=== PATIENT | female | born 1955 | race Caucasian/White ===

== ENCOUNTER 2021-10-30 06:00 | Outpatient (RCR) | payer BC, SELFPAY | END 2021-11-12 23:59 | disposition home or self-care (01) | LOC: GPT 06:00 | PROVIDERS: PCP Emergency Medicine; Visit Provider Orthopaedic Surgery Adult Reconstructive Orthopaedic Surgery | DX: S52.125S Nondisplaced fracture of head of left radius, sequela (principal); X58.XXXS Exposure to other specified factors, sequela; Z96.621 Presence of right artificial elbow joint | CPT/HCPCS: 97032; 97110; 97112; 97140; 97162; 97535 ==

== ENCOUNTER 2021-11-13 06:00 | Outpatient (RCR) | payer BC, SELFPAY | END 2021-12-12 23:59 | disposition home or self-care (01) | LOC: GPT 06:00 | PROVIDERS: PCP Emergency Medicine; Visit Provider Orthopaedic Surgery Adult Reconstructive Orthopaedic Surgery | DX: S52.125S Nondisplaced fracture of head of left radius, sequela (principal); X58.XXXS Exposure to other specified factors, sequela; Z96.621 Presence of right artificial elbow joint | CPT/HCPCS: 97110; 97140; 97164 ==

== ENCOUNTER 2021-12-13 06:00 | Outpatient (RCR) | payer BC, SELFPAY | END 2022-01-12 23:59 | disposition home or self-care (01) | LOC: GPT 06:00 | PROVIDERS: PCP Emergency Medicine; Visit Provider Orthopaedic Surgery Adult Reconstructive Orthopaedic Surgery | DX: M25.511 Pain in right shoulder (principal) | CPT/HCPCS: 97110; 97112; 97140; 97164 ==

== ENCOUNTER 2022-01-13 06:00 | Outpatient (RCR) | payer BC, SELFPAY | END 2022-02-11 23:59 | disposition home or self-care (01) | LOC: GPT 06:00 | PROVIDERS: PCP Emergency Medicine; Visit Provider Orthopaedic Surgery Adult Reconstructive Orthopaedic Surgery | DX: M25.511 Pain in right shoulder (principal) | CPT/HCPCS: 97110; 97112; 97140; 97535 ==

== ENCOUNTER 2022-02-12 06:00 | Outpatient (RCR) | payer BC, SELFPAY | END 2022-03-14 23:59 | disposition home or self-care (01) | LOC: GPT 06:00 | PROVIDERS: PCP Emergency Medicine; Visit Provider Orthopaedic Surgery Adult Reconstructive Orthopaedic Surgery | DX: M25.511 Pain in right shoulder (principal) | CPT/HCPCS: 97110; 97112; 97140; 97530; 97535 ==

== ENCOUNTER 2022-03-15 06:00 | Outpatient (RCR) | payer MEDICARE, BC, SELFPAY | END 2022-04-14 23:59 | disposition home or self-care (01) | LOC: GPT 06:00 | PROVIDERS: PCP Emergency Medicine; Visit Provider Orthopaedic Surgery Adult Reconstructive Orthopaedic Surgery | DX: M25.511 Pain in right shoulder (principal) | CPT/HCPCS: 20561; 97110; 97140; 97164; 97530; G0283 ==

== ENCOUNTER 2022-04-15 06:00 | Outpatient (RCR) | payer BC, SELFPAY | END 2022-05-12 11:29 | disposition home or self-care (01) | LOC: GPT 06:00 | PROVIDERS: PCP Emergency Medicine; Visit Provider Orthopaedic Surgery Adult Reconstructive Orthopaedic Surgery | DX: M25.511 Pain in right shoulder (principal) | CPT/HCPCS: 20560; 20561; 97110; 97140; G0283 ==

== ENCOUNTER 2022-05-13 06:00 | Outpatient (RCR) | payer BC, SELFPAY | END 2022-05-29 23:59 | disposition home or self-care (01) | LOC: GPT 06:00 | PROVIDERS: PCP Emergency Medicine; Visit Provider Orthopaedic Surgery Adult Reconstructive Orthopaedic Surgery | DX: M25.511 Pain in right shoulder (principal) | CPT/HCPCS: 97140; 97164 ==

== ENCOUNTER 2022-07-13 06:00 | Outpatient (RCR) | payer BC, SELFPAY | END 2022-08-12 23:59 | disposition home or self-care (01) | LOC: GPT 06:00 | PROVIDERS: Visit Provider Physician Assistant | DX: M54.50 Low back pain, unspecified (principal) | CPT/HCPCS: 97110; 97112; 97140; 97161; 97530; 97535 ==

== ENCOUNTER 2024-09-12 05:00 | Outpatient (RCR) | payer MEDICARE, SELFPAY | END 2024-10-12 23:59 | disposition home or self-care (01) | LOC: GPT 05:00 | PROVIDERS: Visit Provider Physical Medicine & Rehabilitation Pain Medicine | DX: M46.1 Sacroiliitis, not elsewhere classified (principal); M54.17 Radiculopathy, lumbosacral region; M54.59 Other low back pain | CPT/HCPCS: 20560; 97110; 97112; 97140; 97161; G0283 ==

== ENCOUNTER 2024-10-13 05:00 | Outpatient (RCR) | payer MEDICARE, SELFPAY | END 2024-11-12 23:59 | disposition home or self-care (01) | LOC: GPT 05:00 | PROVIDERS: Visit Provider Physical Medicine & Rehabilitation Pain Medicine | DX: M47.817 Spondylosis without myelopathy or radiculopathy, lumbosacral region (principal); M51.370 Other intervertebral disc degeneration, lumbosacral region with discogenic back pain only | CPT/HCPCS: 20560; 97110; 97140; G0283 ==

== ENCOUNTER 2024-11-13 05:00 | Outpatient (RCR) | payer MEDICARE, SELFPAY | END 2024-12-12 23:59 | disposition home or self-care (01) | LOC: GPT 05:00 | PROVIDERS: Visit Provider Physical Medicine & Rehabilitation Pain Medicine | DX: M54.17 Radiculopathy, lumbosacral region (principal); M46.1 Sacroiliitis, not elsewhere classified | CPT/HCPCS: 20560; 97110; 97112; 97140; G0283 ==